=== PATIENT | female | born 1950 | race African-American/Black ===

== ENCOUNTER 2021-10-22 11:00 | Outpatient (RCR) | payer MEDICARE, SELFPAY ==
--- NOTE | 2021-07-27 14:05 | PTOPEVAL ---
Thank you for referring Bryanna Hernandez to [facility].? The patient is scheduled to be seen for therapy? 2 x/week for 8 weeks. Please review, sign, date and return this plan of care ALEJANDRA. I agree with and certify that the following plan of care is medically necessary. Referring Physician Date Referring Provider: Dr. Francisco Cheng Diagnosis low back pain and hip pain Additional Evaluation Detail She received therapy at [facility] a few months ago. Subjective Information She reports she has trouble Query Text:As Reported By Patient/ getting out of bed. She Family requires assistance with all bed mobility and transfers. She spends 12 hrs a day in her recliner lift chair. She goes from her bed to her recliner for the day. She does not exercise or walk during the day. She has a BSC next to her recliner. She has requires assistance with transfers for the past year. Prior Level of Function Activity Level (Last 3 Months) Activity of Daily Living Ability Needs Some Help Indoor/Home Mobility Needs Some Help Community Mobility Needs Some Help Stairs Ability Needs Some Help Home Setting Environmental Barriers Railing, None,Stairs, 2-4 Living Situation With Spouse Comments Additional Prior Level of Function assist with ADL's and Comments functional mobility. Hired assistance for housekeeping. Pain Assessment Right Leg(s) Reported Pain Level 5 Pain Description Aching Pain Frequency Chronic Lowest Pain Intensity 3 Greatest Pain Intensity 5 Lower Extremity Muscle Strength Testing Hip Strength Bilateral Hip Flexion Strength 3 Fair Hip Abduction Strength 2+ Poor + Hip Adduction Strength 2+ Poor + Knee Strength Bilateral Knee Flexion Strength 3+ Fair + Knee Extension Strength 4- Good - Knee Strength Comments hamstring tested seated Ankle Strength Bilateral Ankle Dorsiflexion Strength 3 Fair Ankle Plantarflexion Strength 3 Fair Ankle Eversion Strength 3 Fair Ankle Inversion Strength 3 Fair Muscle Length Testing Muscle Length Testing Piriformis w/Hip Neutral (R) Severe Tightness,(L) Severe Tightness Left Hamstring Length -60:(90 - 90 Position) Right Hamstring Length -60:(90 - 90 Position)
--- NOTE | 2021-08-25 11:46 | PTOPEVAL ---
Physical Therapy Progress Note Thank you for referring Bryanna Hernandez to [facility].? Pt referred to therapy due to right hip pain and sciatica. However she does not indicate her right leg as her primary problem. She has attended 9 therapy visits from 07/27/21 to 08/25/21 with land and aquatic therapy. As a result of skilled therapy services she demonstrates improved functional mobility with ability to perform transfers, ambulation, and bed mobility. She is performing her HEP and has increased her activities at home with increased walking and performing daily task. She is progressing slowly with LE strength, but demonstrates improved functional strength. 5 reps sit<>stand: 2:09 with assist to stabilize chair. Not tested Rushing Balance: , improved to 2 min walk test: 143 with rollator, declined slight to 120 ft with rollator TU sec with rollator Assessment: She presents to therapy with impairments consistent with her Parkinson's DX with therapy impairments of force production impairment with balance impairment, muscle weakness. She is progressing towards her therapy goals. She requires additional skilled therapy services to address her noted limitations, progress her HEP and functional mobility at home, and decrease her fall risk with improved balance,strength and endurance. Without additional skilled therapy services her multiple areas of impairments will not improve and her function will remain limited. The patient is scheduled to be seen for therapy?2 x/week for 5 weeks. Please review, sign, date and return this plan of care ALEJANDRA. I agree with and certify that the following plan of care is medically necessary. Referring Physician Date Referring Provider: MACIE Milian Diagnosis low back pain and hip pain Additional Evaluation Detail She received therapy at [facility] a few months ago. Subjective Information She reports improved ability Query Text:As Reported By Patient/ to walk, transfer and perform Family bed mobility at home. She is walking 2x/day in the house, performing HEP daily, and attempting household task. She does feel therapy has improved her limitations. Pain Assessment Self Report Pain Assessment Right Leg(s) Reported Pain Level 0 Pain Score Pain Score 0: Self Report Lower Extremity Muscle Strength Testing Hip Strength Bilateral Hip Flexion Strength 3 Fair Hip Extension Strength 2 Poor Hip Abduction Strength 2+ Poor + Hip Adduction Strength 2+ Poor + Hip Strength Comments slight lift of buttocks with bridge Knee Strength Bilateral Knee Flexion Strength 3+ Fair + Knee Extension Strength 4- Good - Knee Strength Comments hamstring tested seated Transfer Assessment Chair Transfer Assessment Chair Transfer Assistive Devices Gait Belt Ambulation Assistive Devices Walker, Rollator Chair Transfer Destination Ambulatory Sit to Stand Chair Transfer Ability Independent Stand to Sit Chair Transfer Ability
--- NOTE | 2021-09-28 10:37 | PCPTNOTE ---
Patient called & cancelled scheduled appointment this date due to not having transportation.
--- NOTE | 2021-10-05 11:52 | PTOPEVAL ---
PHYSICAL THERAPY RE-EVALUATION AND UPDATED PLAN OF CARE 10-05-21 Refer to the clinical summary below, for her status today, compared to the last reevaluation. Bryanna is scheduled to continue therapy? 2 x/week for 4 weeks, with one land and one aquatic treatment session/wk. Please review, sign, date and return this updated plan of care ALEJANDRA. I agree with and certify that the following plan of care is medically necessary. Referring Physician Date Attending Provider: MACIE Lujan Subjective Information Bryanna reports: is getting up Query Text:As Reported By Patient/ from the chair better and Family walking more; want to continue therapy; have been doing the exercises at home; is standing up about 10 minutes with doing dishes and kitchen things; went to [facility] the first time last week, up 2 step and did OK with it; is up/walking in home about every 2 hours; Pain Assessment Pain Scale Pain Scale Used Numeric (1 - 10) Self Report Pain Assessment Right Leg(s) Reported Pain Level 3 Pain Frequency Chronic,Continuous Other Pain Description throb proximal tibia Lowest Pain Intensity 3 Greatest Pain Intensity 4 Interventions Used Interventions Used By Clinicians Education,Exercise Gross Lower Extremity Range of Motion in sitting: active knee Comments flexion R 90'/ L 95'; Gross Lower Extremity Strength functional strength testing LE 's: -sitting: R and L: ankle DF to 0', knee extension to 0' and hip flexion x 20 reps each - standing: with B UE support: hip flexion ~ 40-50' x 20 reps verbal review of HEP: stated doing 10 reps, 2x- instruct to do 20 straight and increase as able Rushing Balance Assessment Sitting to Standing Independent w/Hands Unsupported Stance Ability Safely- 2 minutes Sitting Unsupported, Feet on Floor Safely- 2 minutes Standing to Sitting Assist, Control w/Hands Transfer Ability Safely, Hand Use Unsupported Stance- Eyes Closed Safely, 10 seconds Unsupported Stance- Feet Together Assist to attain, 15 secs Reaching Forward while Standing Safely, 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
--- NOTE | 2021-10-26 08:40 | PCPTNOTE ---
This treatment is being continued on visit number [id number] Please see documentation on both accounts to view progress. Completed interventions, outcomes, and problems have been marked as Inactive to facilitate the copying of the Care plan routine for recurring accounts.
== END 2021-10-25 23:59 | disposition home or self-care (01) ==
LOC: ANHPT 11:00
PROVIDERS: PCP Specialist
DX: M54.31 Sciatica, right side (principal); M25.551 Pain in right hip
CPT/HCPCS: 97110; 97112; 97113; 97116; 97163; 97530

== ENCOUNTER 2021-11-20 09:00 | Outpatient (RCR) | payer MEDICARE, SELFPAY ==
--- NOTE | 2021-10-26 08:42 | PCPTNOTE ---
This treatment is being continued from visit number [id number] . Please see documentation on both accounts to view progress. Completed interventions, outcomes, and problems have been marked as Inactive to facilitate the copying of the Care plan routine for recurring accounts.
--- NOTE | 2021-11-02 11:58 | PTOPEVAL ---
PHYSICAL THERAPY REEVALUATION AND UPDATED PLAN OF CARE 11-02-21 Refer to the clinical summary below, for her status today, compared to the last reevaluation. The goals were partially achieved. Continue PT treatment 2x/week for 3 weeks. Thank you for referring Bryanna Hernandez to [facility].? Please review, sign, date and return this updated plan of care ALEJANDRA. I agree with and certify that the following plan of care is medically necessary. Referring Physician Date Attending Provider: John Tirado MD Subjective Information Bryanna reports: mobility is Query Text:As Reported By Patient/ better since coming for Family therapy; still need to work on picking up my knees; have not had any falls, is getting up and walking about every hour at home; doing home exercises every other day; but do sitting exercises for legs all the time; still not comfortable on stairs--only done 2 steps at [facility] and home; Pain Assessment Timing of Pain Assessment Timing of Pain Assessment Assessment Self Report Self Report Pain Level 0 Pain Score Pain Score 0: Self Report Additional Pain Score Comments wearing L ankle brace and it helps--compression ankle brace Lower Extremity Range of Motion General Lower Extremity Range of Motion Gross Lower Extremity Range of Motion sitting knee flexion R 85'/L Comments 100' Gross Lower Extremity Strength functional strength testing R and L LE: - sit to stand transfer with laboring multiple attempts, use of B UE's and leans thighs onto mat - with B UE support: - hip flexion R to 70'/ L to 70' x 15 reps each - hip abduction R /L x 20 reps each - ankle DF R to (-5') / L to 0 x 15 reps; Rushing Balance Assessment Sitting to Standing Several Tries w/Hands Unsupported Stance Ability Safely- 2 minutes Sitting Unsupported, Feet on Floor Safely- 2 minutes Standing to Sitting Safely, Minimal Hand Use Transfer Ability Safely, Minimal Hand Use Unsupported Stance- Eyes Closed Safely, 10 seconds Unsupported Stance- Feet Together Independent, 1 minute Reaching Forward while Standing Safely, 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
--- NOTE | 2021-11-20 09:52 | PTOPEVAL ---
PHYSICAL THERAPY DISCHARGE REPORT 11-20-21 Refer to the clinical summary below, for her status today, compared to the last reeval. The goals were partially met. Discharge PT services. She is to continue with her HEP and increase walking tolerance. Thank you for referring Bryanna Hernandez to [facility].? Please review, sign, date and return this Discharge report ALEJANDRA. I agree with and certify that the following plan of care is medically necessary. Referring Physician Date Attending Provider: John Tirado MD Subjective Information Bryanna reports: gout flared Query Text:As Reported By Patient/ up and dr gave her meds, so is Family better; doing better getting around the house and was able to get into her 's truck; no falls; is doing her exercises at home; been going out to eat, shopping and buddhism; doing OK on stairs at home Pain Assessment Self Report Self Report Pain Level 0 Gross Lower Extremity Range of Motion sitting knee flexion R 95'/L Comments 105'; Gross Lower Extremity Strength functional strength testing R and L LE: - sit to stand transfer with laboring on first attempt, use of B UE's and leans thighs onto mat; decreased control with stand to sitting - with B UE support: - hip flexion R to 70'/ L to 70' x 20 reps each - hip abduction R /L x 20 reps each - ankle DF R to (-5') / L to 0' x 15 reps; Sit to Stand Chair Transfer Ability Independent Stand to Sit Chair Transfer Ability Independent Cues Needed for Chair Transfer None Chair Transfer Comments sit to stand indep, with use of B UE's and labored; decrease knee flexion and leans thighs on chair Rushing Balance Assessment Sitting to Standing Independent w/Hands Unsupported Stance Ability Safely- 2 minutes Sitting Unsupported, Feet on Floor Safely- 2 minutes Standing to Sitting Safely, Minimal Hand Use Transfer Ability Safely, Minimal Hand Use Unsupported Stance- Eyes Closed Safely, 10 seconds Unsupported Stance- Feet Together Independent, 1 minute Reaching Forward while Standing Safely, 5 inches it technical support specialist Object From Floor Supervision Look Behind Shoulder - Standing Shifts Weight Unilateral Turning 360 Degrees Supervision
== END 2022-01-11 10:47 | disposition home or self-care (01) ==
LOC: ANHPT 09:00
PROVIDERS: PCP Specialist
DX: M54.31 Sciatica, right side (principal); M25.551 Pain in right hip
CPT/HCPCS: 97110; 97112; 97113; 97140; 97530

== ENCOUNTER 2022-03-09 08:00 | Outpatient (RCR) | payer MEDICARE, SELFPAY ==
--- NOTE | 2021-12-18 10:13 | PTOPEVAL1 ---
Evaluation Information Assessment Status Evaluation Diagnosis L knee and ankle arthritis Onset 11-16-21 Subjective Information more pain in L knee and ankle, received injection in L knee and ankle- helped a little, but still have pain and throbbing;have not had any falls; using wheeled walker all the time; Reported Pain Level Pain Score 3: Self Report Additional Pain Score Comments use rollator for walking;pain range 0-5/10 Assessment PT Clinical Summary Bryanna has the diagnosis of L knee and ankle arthritis. She recently completed PT for gait/ balance and LE strengthening and is continuing to do the previous leg exercise program. She does have good supportive shoes. She presents with decreased ROM and strength of L knee flexion, extension; ankle DF, inversion and eversion ranges of motion. She also has decreased L hip IR ROM, with poor positioning over L LE-- holds in hip ER, knee flexion and ankle forefoot abduction. Skilled PT services are indicated to increase L LE strength and ROM, with education for home exercises and modalities to decrease pain. Plan of Care Interventions Electrical Stimulation,Gait Training,Manual Therapy,Neuro Re-education,Patient/Caregiver Education,Therapeutic Activities,Therapeutic Exercise,Other Other Interventions fluiodtherapy PT Services Indicated Yes Treatment Frequency and 2x/wk for 4 weeks Duration These treatments will address the objective and functional deficits as defined above. The patient will be advanced safely and appropriately in order for the patient to progress towards his/her prior level of function. Additional exercises will be introduced and as well as a comprehensive home exercise program upon discharge, if needed, ?to ensure carryover of functional gains achieved in the clinic. This treatment plan has been reviewed and agreement upon by the patient.
--- NOTE | 2022-01-15 10:23 | PTOPEVAL1 ---
Assessment and note entered by Genoveva Lira, PT Evaluation Information Assessment Status Re-Evaluation Diagnosis L knee and ankle arthritis Onset 11-16-21 Subjective Information Bryanna reports: is doing better, able to take a few steps without the walker; have been doing the exercises at home; Reported Pain Level Pain Score Self Report pain L knee and ankle Additional Pain Score Comments pain range of 0-6/10; increase pain with standing and walking about 10 minutes; Assessment PT Clinical Summary Bryanna has had 9 PT sessions for the diagnosis of L knee and ankle arthritis. Compared to the evaluation, her pain at the low rating is the same, 0/10 and high rating increased from 5 to 6/10; reported walking tolerance increased from 5-10 min to 10 minutes; 2 minute walking test difference is the same; some increased strength of L knee extension, ankle DF and toe flexion/extension; L hip IR, knee and ankle ranges are the same; She is motivated and is doing her home exercises, but Parkinson's is also affecting her L LE. Continue PT, to include LSVT/Parkinson's program in her treatment--for education of big and loud with movements to improve flexibility, gait and HEP specific for Parkinson's diagnosis. Plan of Care Interventions Gait Training,Neuro Re-education,Therapeutic Activities,Therapeutic Exercise PT Services Indicated Yes Treatment Frequency and 1-2x/wk for 5 weeks, due to availability of Duration schedule of pt and therapist These treatments will address the objective and functional deficits as defined above. The patient will be advanced safely and appropriately in order for the patient to progress towards his/her prior level of function. Additional exercises will be introduced and as well as a comprehensive home exercise program upon discharge, if needed, ?to ensure carryover of functional gains achieved in the clinic. This treatment plan has been reviewed and agreement upon by the patient.
--- NOTE | 2022-02-10 14:18 | PCPTNOTE ---
pt called and canceled today's appt due to in ER;
--- NOTE | 2022-02-19 13:30 | PTOPPROG ---
Assessment and note entered by Genoveva Lira, PT Evaluation Information Assessment Status progress Diagnosis L knee and ankle arthritis Onset 11-16-21 Subjective Information Bryanna reports: transfer better, sit/standing up; balance is better with standing and reaching; have been doing the exercises at home; hand writing is better- was really frustrated about it because it was small, but now better; standing/ walking at home about 15 minutes; want to keep doing more therapy; want to walk better, not use the walker but use a cane for walking; Assessment PT Clinical Summary Bryanna has received 12 PT sessions. She canceled a few sessions, due to her was in the hospital. Compared to the last reeval: L hip, knee and ankle ranges are the same--continues to have tightness of hip IR, knee extension and ankle DF motions; increased 2 minute walking test distance from 225' to 260'; gait pattern has improved-- larger step length--now passes other foot; she has flat foot pattern, but does not drag her L toe; With the LSVT exercises, she has increased mobility of her trunk rotation and hips, with larger motions. Continue skilled PT services. Plan of Care Interventions Gait Training,Manual Therapy,Neuro Re-education, Patient/Caregiver Education,Therapeutic Activities, Therapeutic Exercise PT Services Indicated Yes Treatment Frequency and 1-2x/wk for 5 weeks, depending upon pt and her Duration husbands' schedule These treatments will address the objective and functional deficits as defined above. The patient will be advanced safely and appropriately in order for the patient to progress towards his/her prior level of function. Additional exercises will be introduced and as well as a comprehensive home exercise program upon discharge, if needed, ?to ensure carryover of functional gains achieved in the clinic. This treatment plan has been reviewed and agreement upon by the patient.
--- NOTE | 2022-03-09 11:50 | PCPTNOTE ---
This treatment is being continued on visit number [id number]. Please see documentation on both accounts to view progress. Completed interventions, outcomes, and problems have been marked as Inactive to facilitate the copying of the Care plan routine for recurring accounts.
== END 2022-03-09 11:05 | disposition home or self-care (01) ==
LOC: ANHPT 08:00
PROVIDERS: PCP Specialist
DX: M17.12 Unilateral primary osteoarthritis, left knee (principal); M19.072 Primary osteoarthritis, left ankle and foot
CPT/HCPCS: 97110; 97112; 97116; 97162; 97530

== ENCOUNTER 2022-03-25 11:00 | Outpatient (RCR) | payer MEDICARE, SELFPAY ==
--- NOTE | 2022-03-09 11:53 | PCPTNOTE ---
This treatment is being continued from visit number [id number]. Please see documentation on both accounts to view progress. Completed interventions, outcomes, and problems have been marked as Inactive to facilitate the copying of the Care plan routine for recurring accounts.
--- NOTE | 2022-03-25 12:01 | PTOPDC ---
Assessment and note entered by Genoveva Lira, PT Evaluation Information Assessment Status Discharge Diagnosis L knee and ankle arthritis Onset 11-16-21 Subjective Information Bryanna reports: has been doing her exercises at home--new ones lying down and other standing exercises; more L ankle pain today not sure why-- walked alot yesterday; agrees to d/c from PT but likes coming here for exercises; Reported Pain Level Pain Score Self Report Pain Score Self Report Additional Pain Score Comments pain in L lateral ankle and foot 10/25 today Additional Pain Score Comments L lateral ankle and bottom of last 2 toes Assessment PT Clinical Summary Bryanna has received 18 PT sessions. Compared to the last reevaluation: HEP was progressed; LE ROM and reported activity tolerance is about the same; doing well with performing the LSVT exercises; 2 minute walking test distance decreased 50'; 5 reps sit/stand time increased 4 seconds; TUG decreased by 9 sec; She has increased awareness of her walking pattern and self corrects with bigger step length and more upright trunk. The goals were partially met. Discharge PT services. She is to continue with her home exercises. Plan of Care PT Services Indicated No PT Services Indicated no
--- NOTE | 2022-03-25 12:04 | PCPTNOTE ---
on this date, treatment note was started, then towards the end of the session, realized that today's appt should have been a reeval appt; I saved the treatment note and did not enter a charge; then redid the note as a discharge report, using recall to do the note.
== END 2022-03-25 12:31 | disposition home or self-care (01) ==
LOC: ANHPT 11:00
PROVIDERS: PCP Specialist
DX: M17.12 Unilateral primary osteoarthritis, left knee (principal); M19.072 Primary osteoarthritis, left ankle and foot
CPT/HCPCS: 97110; 97112; 97116; 97530

== ENCOUNTER 2022-08-20 09:10 | Observation (INO) | payer MEDICARE, SELFPAY ==
[2022-08-20] VITALS (33 sets, daily range): BP systolic 115–190; BP diastolic 55–83; PULSE 43–69; RESP 10–20; TEMP 36.1–36.5; O2SAT 97–100; BMI 34.1; BMI 34.2
--- NOTE | ~2022-08-20 | XR_ITS ---
EXAMINATION: XR chest 1V portable DATE: 08/20/2022 09:49 INDICATION: Near syncope. TECHNIQUE: A single frontal view of the chest was obtained. COMPARISON: None. FINDINGS: The chest demonstrates clear lungs without pneumonia, pleural effusion, or pneumothorax. Th e heart size is normal. Surgical clips in the right upper quadrant are likely from cholecystectomy. IMPRESSION: 1. No acute cardiopulmonary disease. Reviewed, dictated and finalized at location A.
--- NOTE | ~2022-08-20 | US_ITS ---
EXAMINATION: US venous doppler [facility] DATE: 08/20/2022 21:48 INDICATION: edema . TECHNIQUE: Grayscale images without and with compression and Doppler images of the bilateral lower ex tremity veins were obtained. COMPARISON: None FINDINGS: The right common femoral vein, profunda (deep) femoral vein, femoral vein, popliteal vein, peroneal v ein, posterior tibial veins, gastrocnemius vein, and greater saphenous vein are patent. The left common femoral vein, profunda (deep) femoral vein, femoral vein, popliteal vein, peroneal v ein, posterior tibial veins, gastrocnemius vein, and greater saphenous vein are patent. IMPRESSION: 1. Patent bilateral lower extremity veins. No evidence of deep venous thrombosis. Reviewed, dictated and finalized at location K. IMPRESSION: 1. Patent bilateral lower extremity veins. No evidence of deep venous thrombos is.
--- NOTE | ~2022-08-20 | US_ITS ---
EXAMINATION: US carotid duplex BI DATE: 08/20/2022 16:04 INDICATION: Syncope TECHNIQUE: Grayscale, color Doppler, and pulsed Doppler images of the cervical carotid arteries were obtained. The degree of vessel stenosis is placed in one of the following categories: normal, <50%, 5 0-69%, >=70% but less than near-occlusion, near-occlusion, or total occlusion. Note that percent sten osis relative to normal distal artery lumen diameter is indirectly measured from velocity measurement s as described by Evangelista, et al. Radiology 2003; 229:340-346. COMPARISON: None. FINDINGS: RIGHT: The right common carotid artery (CCA) peak systolic velocity (PSV) is 91 cm/s. The right internal car otid artery (ICA) PSV is 71 cm/s. The right ICA end-diastolic velocity (EDV) is 19 cm/s. The right IC A/CCA PSV ratio is 0.8. Grayscale and color Doppler images yield an estimate of <50% diameter reducti on from plaque in the ICA. The external carotid artery (ECA) PSV is 67 cm/s. There is antegrade flow in the right vertebral artery. LEFT: The left CCA PSV is 88 cm/s. The left ICA PSV is 79 cm/s. The left ICA EDV is 19 cm/s. The left ICA/C CA PSV ratio is 0.9. Grayscale and color Doppler images yield an estimate of <50% diameter reduction from plaque in the ICA. The ECA PSV is 100 cm/s. There is antegrade flow in the left vertebral artery . IMPRESSION: 1. <50% stenosis in the right internal carotid artery. 2. <50% stenosis in the left internal carotid artery. Reviewed, dictated and finalized at location B.
--- NOTE | 2022-08-20 09:15 | ECG_ITS ---
Measurements Intervals [place] Rate: 45 P: 55 AR: 138 QRS: -34 QRSD: 94 T: 7 QT: 442 QTc: 383 Interpretive Statements SINUS BRADYCARDIA LEFT AXIS DEVIATION BORDERLINE T WAVE ABNORMALITY- ANTEROLAT/INF LEADS ABNORMAL ECG NO PREVIOUS ECG AVAILABLE FOR COMPARISON Electronically Signed On 08-20-2022 9:35:44 CDT by Reji Wahl D.O.
[2022-08-20 09:37] LABS: Basophils Absolute Auto 0.1 K/mm3 (0.0-0.1); Basophils Percent Auto 0.6 % (0.2-1.2); Eosinophils Absolute Auto 0.1 K/mm3 (0-0.3); Hemoglobin 10.6 g/dL (12.0-15.0); Immature Granulocyte Absolute 0.05 K/mm3 (0.00-0.031); Immature Granulocyte Percent A 0.5 % (0-0.5); Lymphocytes Absolute Auto 1.95 K/mm3 (0.9-3.2); Lymphocytes Percent Auto 17.9 % (18.3-44.2); Mean Corpuscular HGB Conc 33.1 g/dl (32-36); Mean Corpuscular Hemoglobin 30.7 pg (26-34); Mean Corpuscular Volume 92.8 fl (80-100); Mean Platelet Volume 9.9 fl (7.4-10.4); Monocytes Absolute Auto 0.6 K/mm3 (0.1-0.6); Monocytes Percent Auto 5.8 % (2.6-8.5); Neutrophils Absolute Auto 8.1 K/mm3 (1.3-6.7); Neutrophils Percent Auto 74.2 % (45.5-73.1); Platelet Count Result 197 k/mm3 (150-375); Red Blood Count 3.45 M/mm3 (4.2-5.4); Red Cell Distribution Width 13.3 % (11.5-14.5); White Blood Count 10.9 K/mm3 (4.5-10.0)
[2022-08-20 09:47] LABS: Alanine Aminotransferase 13 U/L (6-35); Albumin Level 3.8 g/dL (3.5-5.1); Alkaline Phosphatase 81 U/L (38-126); Anion Gap 5 mmol/L (8-16); Aspartate Amino Transferase 18 U/L (14-36); Bilirubin,Total 0.9 mg/dL (0.2-1.3); Blood Urea Nitrogen 13 mg/dL (7-17); Calcium 8.7 mg/dL (8.4-10.2); Carbon Dioxide 28 mmol/L (22-30); Chloride 103 mmol/L (98-107); Estimated CRCL calculation 54 ml/min; Estimated Glomerular Filt Rate > 60; Glucose 165 mg/dL (65-110); Potassium 3.1 mmol/L (3.4-5.0); Sodium 136 mmol/L (137-145)
[2022-08-20 09:55] LABS: Partial Thromboplastin Time 21.9 SECONDS (22.3-36.8); Prothrombin Time 13.8 Seconds (11.1-14.7)
[2022-08-20 09:59] LABS: NT Pro B Type Natriuretic Pept 347 pg/mL (19.9-100); Troponin I < 0.012 ng/mL (0.000-0.034)
[2022-08-20 11:16] LABS: Appearance Urine Clear (Clear); Bilirubin Urine Negative (Negative); Blood Urine Negative (Negative); Color Urine Yellow (Yellow); Glucose Urine UA Negative (Negative); Ketones Urine Negative (Negative); Leukocyte Esterase Ur Negative LEU/UL (Negative); Nitrate Urine Negative (Negative); Protein Urine Negative (Negative); Specific Grav Ur 1.008 (1.001-1.035); Urobilinogen Urine 0.2 mg/dL (<2.0); pH Urine 7.5 (5.0-9.0)
[2022-08-20 11:19] LABS: Add Urine Microscopic? NO
--- NOTE | 2022-08-20 12:30 | PC.NURSE ---
pt states is feeling much better. 3 hour troponin drawn and sent.
--- NOTE | 2022-08-20 12:40 | ED.SYNCOPE ---
HPI - Syncope General Chief Complaint: Syncope Stated Complaint: near syncope, bradycardic Time Seen by Provider: 08/20/22 09:15 History of Present Illness HPI narrative: Patient is a 71-year-old female who presents ER with syncope from home. Patient was on the toilet and had had a bowel movement. No diarrhea or blood in the stool. She felt off and called for her . She was diaphoretic. She passed out while moving into the other room. Patient has been persistently bradycardic for EMS. Patient denies any chest pain or pressure at this time. She is still feeling slightly lightheaded. She also feels slightly anxious. She takes carvedilol 12.5 mg, she believes it is for hypertension. Denies history of arrhythmia. Related Data Home Medications Medication Instructions Recorded Confirmed allopurinol 100 mg tablet 100 mg PO BID 08/20/22 carbidopa 25 mg-levodopa 100 mg 1 tablet PO TID 08/20/22 tablet carbidopa ER 50 mg-levodopa 200 mg 1 tablet PO HS 08/20/22 tablet,extended release carvedilol 12.5 mg tablet 12.5 mg PO BID 08/20/22 chlorthalidone 25 mg tablet 25 mg PO DAILY 08/20/22 irbesartan 300 mg tablet 300 mg PO DAILY 08/20/22 metformin 500 mg tablet,extended 500 mg PO DAILY 08/20/22 release 24 hr multivit with minerals-iron 18 tablet PO 08/20/22 mg-folic ac 400 mcg-vit K 25 mcg tablet (Adults Multivitamin) Allergies Allergy/AdvReac Type Severity Reaction Status Date / Time ROSA Inhibitors Allergy Unknown Verified 08/20/22 09:20 amlodipine Allergy Unknown Verified 08/20/22 09:19 meloxicam Allergy Unknown Verified 08/20/22 09:19 Review of Systems Review of Systems: All systems reviewed & are unremarkable except as noted in HPI and below Constitutional: Constitutional: Denies chills, Denies fatigue and Denies fever(s) Comments: Diaphoresis ENT: Denies nasal congestion and Denies sore throat Cardiovascular: Cardiovascular: Denies chest pain, Denies radiating jaw, neck or arm pain and Reports slow heart rate Respiratory: Respiratory: Denies cough and Denies dyspnea Gastrointestinal: Gastrointestinal: Denies abdominal pain, Denies diarrhea, Denies nausea and Denies vomiting Genitourinary: Genitourinary: Denies nocturia, Denies dysuria and Denies flank pain PMFSH Past Medical History Medical History (Updated 08/20/22 @ 14:25 by Waqar Min MD) Diabetes Hypertension Parkinsons disease Surgical History Surgical History (Updated 08/20/22 @ 14:23 by Waqar Min MD) History of cholecystectomy Exam Narrative: GENERAL: Well-appearing, well-nourished, and in no acute distress. HEAD: Normocephalic, atraumatic. EYES: PERRL and EOMI. ENT: Mucous membranes moist. CHEST: Clear to auscultation. No respiratory distress. HEART: Bradycardic and regular. Normal peripheral pulses. ABDOMEN: Soft, nontender, nondistended. EXTREMITIES: Normal range of motion. No edema. SKIN: Warm, dry, no rash. NEURO: Alert and oriented x3. PSYCH: Normal mood and affect. Course Course Emergency Course: There is concern bradycardia provokes patient's syncopal episode. Patient has been persistently in the 40s. Appears to be sinus bradycardia. Cardiology consulted and admit to hospitalist service for observation. Patient and agreeable to plan. Vital Signs Vital signs: Vital Signs Pulse Rate 47 L 08/20/22 09:11 Respiratory Rate 15 08/20/22 09:11 Blood Pressure 126/62 08/20/22 09:11 Pulse Oximetry 98 08/20/22 09:11 Oxygen Delivery Room Air 08/20/22 09:11 Pulse Rate 55 L 08/20/22 13:58 Respiratory Rate 17 08/20/22 13:58 Blood Pressure 156/69 H 08/20/22 13:58 Pulse Oximetry 99 08/20/22 13:58 Oxygen Delivery Room Air 08/20/22 09:11 MDM - Syncope Lab Data 08/20/22 09:30 08/20/22 09:30 Labs: Lab Results 08/20/22 08/20/22 08/20/22 Range/Units 09:30 11:08 12:29 WBC 10.9 H (4.5-1
[2022-08-20 13:15] LABS: Troponin I < 0.012 ng/mL (0.000-0.034)
--- NOTE | 2022-08-20 14:49 | PM.IMHP ---
H&P: HPI History of Present Illness Date/Time: 08/20/22 14:50 Chief Complaint: Syncope. Narrative: This is a pleasant 71-year-old female with Parkinson's, hypertension, and type 2 diabetes mellitus who presented to the emergency department via EMS from home for evaluation after a syncopal episode. The patient provides the following history. She felt just fine when she got up this morning and she went to the restroom as usual. She had a normal, unremarkable bowel movement and she stood up to wash her hands. Within seconds she began to feel lightheaded, dizzy, anxious, and nauseated. She did have 1 episode of emesis and she called out for her at that time who came to her side immediately with her wheeled walker. She sat down on the walker and he pushed her into the other room where she had a brief loss of consciousness. EMS was summoned on their arrival she was bradycardic and she has been persistently bradycardic since that time with heart rates in the mid 40s. She is on carvedilol 12.5 mg b.i.d. and she did take her morning dose. She does not know her baseline heart rate but she does not ever recall being told that her heart rate was ever low. She has never had similar symptoms. She denies chest pain discomfort, sensations of racing heart, palpitations, pleuritic pain, and shortness of breath. She has current of her symptoms and feels just fine. In the ED her heart rate was persistently in the 40s to low 50s. Blood pressures were stable on arrival and have remained so; her orthostatic vital signs have been normal. Labs were significant for a WBC count of 10.9, hemoglobin 10.6, sodium 136, potassium 3.1, glucose 165, troponin less than 0.012, proBNP 347. Chest x-ray showed no acute cardiopulmonary disease. EKG showed sinus bradycardia with left axis deviation borderline T-wave abnormalities in the anterolateral and inferior leads. She is being admitted in this setting for close monitoring given persistent bradycardia. Review of Systems Review of Systems: Twelve systems were reviewed. She does have some balance issues from her Parkinson. Denies dysphagia and concerns for aspiration though I did witness her cough briefly after drinking liquid. No recent falls. No focal weakness or paresthesias. She denies chest pain and shortness of breath. She has occasional lower extremity edema, usually worse as the day progresses due to dependent edema but it goes down by morning time. No history of venous thromboembolism. She believes that her diabetes is well controlled. Except as documented, all other systems were reviewed and are negative. [facility] Past Medical History Medical History (Updated 08/20/22 @ 21:03 by Lynn Walter PA-C) Arthritis Gout Hypertension Parkinsons disease Type 2 diabetes mellitus Surgical History Surgical History (Updated 08/20/22 @ 21:01 by Lynn Walter PA-C) History of arthroplasty of right knee (2018) History of bilateral cataract extraction (2019) History of section History of cholecystectomy History of colonoscopy with polypectomy History of open reduction and internal fixation (ORIF) procedure Repair of right ankle fracture. Family History Family History Mother Diabetes mellitus Hypertension Cerebrovascular accident Father Liver cancer Hypertension Other Breast cancer Social History Social History Social History: Surrogate medical decision maker: Laz Hernandez, spouse. Code status: Full code. Smoking status: Never smoker Second hand tobacco smoke exposure: No Alcohol intake: never Substance use: never Lack of Transportation: No Lack of Food: Never True Current Housing: I Have Housing Concerned About Future Housing: No Difficulty Paying Gas/Electric Bills: No Difficulty Paying for Meds: No Currently Unemployed:
[2022-08-20 16:36] LABS: Glucose Point of Care 113 mg/dl (65-105)
[2022-08-20] MEDS: CARBIDOPA/LEVODOPA 10/100 MG TABLET 2 TABLET PO (16:46)
[2022-08-20] MEDS: POTASSIUM CHLORIDE 20 MEQ TABLET 40 MEQ PO (16:47)
[2022-08-20 17:45] LABS: Troponin I < 0.012 ng/mL (0.000-0.034)
[2022-08-20 20:29] LABS: Glucose Point of Care 119 mg/dl (65-105)
[2022-08-20] MEDS: CARBIDOPA/LEVODOPA 25/100 MG CR TABLET 2 TABLET PO (21:57)
[2022-08-20] MEDS: allopurinoL 100 MG TABLET PO (21:57)
[2022-08-21] VITALS (16 sets, daily range): BP systolic 112–178; BP diastolic 48–73; PULSE 48–65; RESP 14–18; TEMP 36.2–36.5; O2SAT 96–100
[2022-08-21 04:49] LABS: Anion Gap 6 mmol/L (8-16); Blood Urea Nitrogen 11 mg/dL (7-17); Carbon Dioxide 28 mmol/L (22-30); Chloride 104 mmol/L (98-107); Estimated CRCL calculation 57 ml/min; Estimated Glomerular Filt Rate > 60; Glucose 105 mg/dL (65-110); Magnesium 1.5 mg/dL (1.6-2.3); Potassium 3.6 mmol/L (3.4-5.0); Sodium 138 mmol/L (137-145)
[2022-08-21 05:05] LABS: Hemoglobin A1C 6.4 % (<5.7)
[2022-08-21 05:25] LABS: Iron 68 ug/dL (37-170)
[2022-08-21 05:35] LABS: Percent Iron Saturation 26 % (20-50)
[2022-08-21 05:55] LABS: Folic Acid 12.3 ng/mL (2.76->20)
[2022-08-21 08:38] LABS: Glucose Point of Care 121 mg/dl (65-105)
[2022-08-21] MEDS: IRBESARTAN 150 MG TABLET 300 MG PO (08:50)
[2022-08-21] MEDS: CHOLECALCIFEROL 1,000 UNITS TABLET 1000 UNITS PO (08:50)
[2022-08-21] MEDS: allopurinoL 100 MG TABLET PO ×2 (08:50→17:39)
[2022-08-21] MEDS: CARBIDOPA/LEVODOPA 25/100 MG TABLET 3 TABLET PO ×3 (08:50→17:39)
[2022-08-21] MEDS: metFORMIN HCL XR 500 MG TAB.SR.24H PO (08:50)
[2022-08-21] MEDS: MULTIVITAMINS /C LUTEIN (CENTRUM SILVER) TABLET *BKC 1 TAB PO (08:51)
[2022-08-21] MEDS: CHLORTHALIDONE 25 MG TABLET PO (08:51)
[2022-08-21 12:11] LABS: Glucose Point of Care 136 mg/dl (65-105)
--- NOTE | 2022-08-21 14:16 | PM.CNCAR ---
Assessment and Plan Assessment and plan (1) Syncope: Code(s): R55 - Syncope and collapse Status: Acute Plan One episode of syncope and likely related to orthostatic hypotension vs vasovagal response Hx of parkinsonism HTN controlled Sinus bradycarida likely related to coreg Plan Event monitor on D/C Decrease coreg home dose to 6.25 mg po BID Cont Irbesartan 300 mg daily Educated about precaution for orthostatic hypotension F/U in clinic History of Present Illness History of Present Illness Consult date/time: 08/21/22 14:16 Reason For Visit: Syncope/Bradycardia Narrative: Patient presented with an episode of syncope. She was standing at sink and felt acute dizziness, lightheadedness and her family member helped her to move to chair when she transiently passed out for 2 min. No precipitating or relieving factors. It was associated with one time vomiting. She feels well today. There no recent change in medications or diet, and no proceeding diarrhea or significant vomiting. Review of Systems Review of Systems: 12 points review of system is negative except for mentioned in HPI [facility] Past Medical History Medical History (Updated 08/20/22 @ 21:03 by Lynn Walter PA-C) Arthritis Gout Hypertension Parkinsons disease Type 2 diabetes mellitus Surgical History Surgical History (Updated 08/20/22 @ 21:01 by Lynn Walter PA-C) History of arthroplasty of right knee (2018) History of bilateral cataract extraction (2019) History of section History of cholecystectomy History of colonoscopy with polypectomy History of open reduction and internal fixation (ORIF) procedure Repair of right ankle fracture. Family History Family History Mother Diabetes mellitus Hypertension Cerebrovascular accident Father Liver cancer Hypertension Other Breast cancer Social History Social History Social History: Surrogate medical decision maker: Lazlucas Hernandez, spouse. Code status: Full code. Smoking status: Never smoker Second hand tobacco smoke exposure: No Alcohol intake: never Substance use: never Lack of Transportation: No Lack of Food: Never True Current Housing: I Have Housing Concerned About Future Housing: No Difficulty Paying Gas/Electric Bills: No Difficulty Paying for Meds: No Currently Unemployed: No Education: Master's Degree or Higher Difficulty w/ Childcare or Family Care: No Spiritual care concerns: No (patient is Catholic) Meds Home Medications and Allergies Home Medications Medication Instructions Recorded Confirmed Type allopurinol 100 mg tablet 100 mg PO BID 08/20/22 08/20/22 History amoxicillin 500 mg tablet 2,000 mg PO ONCE PRN prior to 08/20/22 08/20/22 History dental appointments carbidopa 25 mg-levodopa 100 mg 3 tablet PO TID 08/20/22 08/20/22 History tablet carbidopa ER 50 mg-levodopa 200 mg 1 tablet PO HS 08/20/22 08/20/22 History tablet,extended release carvedilol 12.5 mg tablet 12.5 mg PO BID 08/20/22 08/20/22 History chlorthalidone 25 mg tablet 25 mg PO DAILY 08/20/22 08/20/22 History cholecalciferol (vitamin D3) 25 25 mcg PO DAILY 08/20/22 08/20/22 History mcg (1,000 unit) tablet (Vitamin D3) irbesartan 300 mg tablet 300 mg PO DAILY 08/20/22 08/20/22 History metformin 500 mg tablet,extended 500 mg PO DAILY 08/20/22 08/20/22 History release 24 hr multivit with minerals-iron 18 1 tablet PO DAILY 08/20/22 08/20/22 History mg-folic ac 400 mcg-vit K 25 mcg tablet (Adults Multivitamin) prednisone 10 mg tablet 10 mg PO DAILY PRN gout flare 08/20/22 08/20/22 History Allergies Allergy/AdvReac Type Severity Reaction Status Date / Time meloxicam Allergy Severe Swelling Verified 08/20/22 14:35 of Lip/Tongue/Throat ROSA Inhibitors A
--- NOTE | 2022-08-21 14:50 | PM.IMPN ---
Progress Note: A&P Assessment and Plan (1) Syncope: Code(s): R55 - Syncope and collapse Status: Acute Assessment and Plan: History seems consistent with vasovagal syncope Bradycardic however sinus bradycardia with no blocks/pauses Continue telemetry Coreg on hold Echo pending Carotid Doppler with insignificant stenosis Orthostatic vitals negative (2) Bradycardia: Code(s): R00.1 - Bradycardia, unspecified Status: Acute Assessment and Plan: Hold carvedilol for now to see how she responds. TSH normal. Continue to monitor on telemetry. (3) Type 2 diabetes mellitus: Code(s): E11.9 - Type 2 diabetes mellitus without complications Status: Acute Assessment and Plan: Initiate sliding scale insulin, Accu-Cheks, and hypoglycemic protocol. A1c 6.4 (4) Hypertension: Code(s): I10 - Essential (primary) hypertension Status: Chronic Assessment and Plan: Blood pressures are stable. Continue irbesartan and chlorthalidone; carvedilol on hold given bradycardia. (5) Parkinsons disease: Code(s): G20 - Parkinson's disease Status: Chronic Assessment and Plan: Continue carbidopa-levodopa. (6) Hypokalemia: Code(s): E87.6 - Hypokalemia Status: Acute Assessment and Plan: May be related to thiazide-like diuretic. Replace potassium and monitor. (7) Lower extremity edema: Code(s): R60.0 - Localized edema Status: Acute Assessment and Plan: May very well be dependent edema though venous Doppler ultrasounds negative Subjective Date/time seen: 08/21/22 14:50 Interval history: Feels better back to her normal self. Telemetry reviewed. Denies any dizziness or lightheadedness. No new medication. Review of Systems Review of Systems: All systems reviewed & are unremarkable except as noted in HPI and below Exam Narrative: General: Well-developed, nontoxic-appearing female in the semi-Tuttle position in bed. HEENT: Normocephalic, atraumatic. PERRL, EOMI. Sclera anicteric. Oral mucosa moist. Oropharynx clear. Neck: Supple. Trachea midline. No carotid bruits. Respiratory: Lungs are clear to auscultation bilaterally. Cardiovascular: Bradycardic, sinus rhythm with S1-S2. Systolic murmur at the upper sternal border. Gastrointestinal: Abdomen is soft, nontender, and nondistended with positive bowel sounds. Skin: Warm and dry. No rash or lesions on limited exam. Extremities: No cyanosis or clubbing. 2+ coby ankle edema bilaterally. Radial and pedal pulses intact. Neurological: Alert. Cranial nerves 2-12 are grossly intact. No gross focal deficits to casual conversation. Psychiatric: Pleasant and cooperative with normal mood and affect. Judgment and insight intact. Objective Data Vital Signs Vital Signs: Vital Signs - 24 hr 08/20/22 16:00 08/20/22 16:34 08/20/22 16:00 Temperature 97 F L Pulse Rate 50 L 56 L Respiratory Rate 20 Blood Pressure 187/79 H Pulse Oximetry 100 Oxygen Delivery Room Air 08/20/22 18:00 08/20/22 17:00 08/20/22 20:00 Temperature Pulse Rate 54 L Respiratory Rate Blood Pressure 133/63 123/71 Pulse Oximetry Oxygen Delivery 08/20/22 20:00 08/20/22 20:40 08/20/22 20:40 Temperature 97.1 F L Pulse Rate 53 L Respiratory Rate 18 Blood Pressure 149/63 H 160/65 H 148/62 H Pulse Oximetry 97 Oxygen Delivery 08/20/22 20:00 08/20/22 22:00 08/20/22 23:39 Temperature 97.7 F Pulse Rate 55 L 53 L 69 Respiratory Rate 18 Blood Pressure 115/74 Pulse Oximetry 99 Oxygen Delivery 08/21/22 00:00 08/21/22 02:00 08/21/22 04:00 Temperature 97.2 F L Pulse Rate 52 L 53 L 57 L Respiratory Rate 18 Blood Pressure 149/73 H Pulse Oximetry 100 Oxygen Delivery 08/21/22 04:00 08/21/22 06:00 08/21/22 08:00 Temperature 97.3 F L Pulse Rate 48 L 53 L 55 L Respiratory Rate 16 Blood Pre
--- NOTE | 2022-08-21 14:55 | ECHO_ITS ---
Patient Info Name: Bryanna Hernandez Age: 71 years : 1950 Gender: Female Ht: 62 in Wt: 186 lbs BSA: 1.96 m2 BP: 149 / 73 mmHg Technical Quality: Good Exam Date: 08/21/2022 7:45 AM Exam Location: [facility] Patient Status: Inpatient Admit Date: 08/20/2022 Staff Ordering Physician: Lynn Walter PA-C Can Maker: Saira Rivera RDCS Attending Provider: Onel Staton MD Referring Physician: Saba JEFFERSON; Exam Type: CA echo doppler color flow Study Info Indications R55 - Syncope and collapse Complete two-dimensional, color flow and Doppler transthoracic echocardiogram is performed. Summary 1. Complete two-dimensional, color flow and Doppler transthoracic echocardiogram is performed. 2. Left ventricular systolic function is normal, estimated at 65-70%. 3. There is mild mitral valve regurgitation. 4. There is moderate tricuspid valve regurgitation. 5. No pulmonary hypertension, estimated pulmonary arterial systolic pressure is 30 mmHg. Left Ventricle Left ventricular chamber dimension is normal. Left ventricular systolic function is normal, estimated at 65-70%. There is no increased left ventricular wall thickness. Left ventricular septal wall motion is normal. The left ventricular diastolic function is normal. Right Ventricle Right ventricular chamber dimension is normal. Right ventricular systolic function is normal. Left Atria Left atrial chamber dimension is normal. Right Atria Right atrial chamber dimension is normal. Aortic Valve The aortic valve is trileaflet. There is no aortic valve sclerosis. There is no aortic valve stenosis. There is no aortic valve regurgitation. Pulmonic Valve The pulmonic valve is not well visualized. There is no pulmonic valve stenosis. There is no pulmonic regurgitation. Mitral Valve The mitral valve has normal leaflets. There is no mitral valve stenosis. There is mild mitral valve regurgitation. Tricuspid Valve The tricuspid valve leaflets are normal. There is no significant tricuspid valve stenosis. There is moderate tricuspid valve regurgitation. No pulmonary hypertension, estimated pulmonary arterial systolic pressure is 30 mmHg. Pericardium/Pleural The pericardium appears normal. There is no pericardial effusion. Inferior Vena Cava Normal inferior vena cava with >50% collapse upon inspiration consistent with normal right atrial pressure. Aorta The aortic root size at the sinus of Valsalva is normal. The prox ascending aorta size is normal. Tricuspid Valve Name Value Normal Estimated PAP/RSVP PA Systolic Pressure 30 mmHg <36 Report Signatures
[2022-08-21 17:59] LABS: Glucose Point of Care 124 mg/dl (65-105)
[2022-08-21 20:25] LABS: Glucose Point of Care 160 mg/dl (65-105)
[2022-08-21] MEDS: CARBIDOPA/LEVODOPA 25/100 MG CR TABLET 2 TABLET PO (20:38)
[2022-08-22] VITALS (15 sets, daily range): BP systolic 117–170; BP diastolic 46–74; PULSE 47–67; RESP 12–20; TEMP 35.5–36.6; O2SAT 97–100
[2022-08-22 04:25] LABS: Basophils Percent Auto 0.4 % (0.2-1.2); Eosinophils Absolute Auto 0.1 K/mm3 (0-0.3); Eosinophils Percent Auto 0.9 % (0-4.4); Hematocrit 32.4 % (37.0-47.0); Hemoglobin 10.8 g/dL (12.0-15.0); Immature Granulocyte Absolute 0.04 K/mm3 (0.00-0.031); Immature Granulocyte Percent A 0.4 % (0-0.5); Lymphocytes Absolute Auto 2.94 K/mm3 (0.9-3.2); Lymphocytes Percent Auto 27.6 % (18.3-44.2); Mean Corpuscular HGB Conc 33.3 g/dl (32-36); Mean Corpuscular Hemoglobin 30.6 pg (26-34); Mean Corpuscular Volume 91.8 fl (80-100); Mean Platelet Volume 10.3 fl (7.4-10.4); Monocytes Absolute Auto 0.7 K/mm3 (0.1-0.6); Monocytes Percent Auto 6.9 % (2.6-8.5); Neutrophils Absolute Auto 6.8 K/mm3 (1.3-6.7); Neutrophils Percent Auto 63.8 % (45.5-73.1); Platelet Count Result 213 k/mm3 (150-375); Red Blood Count 3.53 M/mm3 (4.2-5.4); Red Cell Distribution Width 13.3 % (11.5-14.5); White Blood Count 10.7 K/mm3 (4.5-10.0)
[2022-08-22 04:43] LABS: Alanine Aminotransferase 8 U/L (6-35); Albumin Level 3.7 g/dL (3.5-5.1); Alkaline Phosphatase 76 U/L (38-126); Anion Gap 4 mmol/L (8-16); Aspartate Amino Transferase 18 U/L (14-36); Bilirubin,Total 0.8 mg/dL (0.2-1.3); Blood Urea Nitrogen 14 mg/dL (7-17); Calcium 8.7 mg/dL (8.4-10.2); Carbon Dioxide 29 mmol/L (22-30); Chloride 103 mmol/L (98-107); Estimated CRCL calculation 57 ml/min; Estimated Glomerular Filt Rate > 60; Glucose 94 mg/dL (65-110); Magnesium 1.5 mg/dL (1.6-2.3); Potassium 3.3 mmol/L (3.4-5.0); Sodium 136 mmol/L (137-145)
[2022-08-22 08:14] LABS: Glucose Point of Care 111 mg/dl (65-105)
[2022-08-22] MEDS: MAGNESIUM SULF 2 GM/WATER 50ML 2 GM/50 ML BAG IVPB (09:34)
[2022-08-22] MEDS: POTASSIUM CHLORIDE 20 MEQ TABLET 40 MEQ PO (09:34)
[2022-08-22] MEDS: allopurinoL 100 MG TABLET PO ×2 (09:35→16:25)
[2022-08-22] MEDS: CARBIDOPA/LEVODOPA 25/100 MG TABLET 3 TABLET PO ×3 (09:35→16:25)
[2022-08-22] MEDS: IRBESARTAN 150 MG TABLET 300 MG PO (09:36)
[2022-08-22] MEDS: CHLORTHALIDONE 25 MG TABLET PO (09:36)
[2022-08-22] MEDS: MULTIVITAMINS /C LUTEIN (CENTRUM SILVER) TABLET *BKC 1 TAB PO (09:36)
[2022-08-22] MEDS: metFORMIN HCL XR 500 MG TAB.SR.24H PO (09:36)
[2022-08-22] MEDS: CHOLECALCIFEROL 1,000 UNITS TABLET 1000 UNITS PO (09:36)
--- NOTE | 2022-08-22 10:55 | PM.PNCARD ---
Progress Note: A&P Assessment and Plan (1) Syncope: Code(s): R55 - Syncope and collapse Status: Acute Plan Assessment Sinus bradycardia Syncope likely related to orthostatic hypotension vs vasovagal HTN Plan Cont Irbesartan and chlorthalidone D/C Coreg F/U in clinic in 2 weeks Event monitor 30 days in outpatient Subjective Date/time seen: 08/22/22 10:55 Interval history: No acute events HR 45 to 50 bpm Review of Systems Review of Systems: All systems reviewed & are unremarkable except as noted in HPI and below Exam Const: General: comfortable and no acute distress Other: Able to lie flat HENMT: Face/Nose/Sinus: Normal nares present and no epistaxis Mouth: Yes moist mucous membranes Eyes: Sclera: sclerae normal Pupils: Equal, round and reactive pupils present Neck: Neck: supple and no JVD Carotids: no bruits Resp: Auscultation: clear to auscultation bilaterally and lung sounds not diminished Other: No chest wall tenderness Cardio: Rate: regular rate Rhythm: regular rhythm Heart sounds: no gallops, no murmurs and no rubs GI: GI Palp: Yes Soft to palpation and No Tenderness to palpation present (GI) Auscultation: normal bowel sounds Skin: General skin exam: normal color, rashes and/or lesions noted and no erythema Other: Warm Neuro: Cranial nerves: Yes Equal, round and reactive pupils present Speech: normal speech Other: No obvious focal deficit or facial asymmetry Extrem: General: no edema Other: Normal capillary refills Intact distal pulses. Objective Data Vital Signs Vital Signs: Vital Signs - 24 hr 08/21/22 12:00 08/21/22 12:00 08/21/22 12:00 Temperature 36.4 C Pulse Rate 50 L 57 L Respiratory Rate 14 Blood Pressure 129/63 Pulse Oximetry 100 Oxygen Delivery Room Air 08/21/22 16:00 08/21/22 16:00 08/21/22 14:00 Temperature 36.4 C Pulse Rate 52 L 51 L Respiratory Rate 16 Blood Pressure 129/64 Pulse Oximetry 100 Oxygen Delivery Room Air 08/21/22 16:00 08/21/22 18:00 08/21/22 20:00 Temperature Pulse Rate 55 L 65 Respiratory Rate Blood Pressure 128/48 L Pulse Oximetry Oxygen Delivery 08/21/22 20:00 08/21/22 20:38 08/21/22 20:39 Temperature 36.4 C L Pulse Rate 54 L Respiratory Rate 18 Blood Pressure 128/48 L 124/56 L 112/56 L Pulse Oximetry 98 Oxygen Delivery 08/21/22 20:00 08/21/22 20:00 08/21/22 22:00 Temperature Pulse Rate 58 L 55 L Respiratory Rate Blood Pressure Pulse Oximetry Oxygen Delivery Room Air 08/21/22 23:52 08/22/22 00:00 08/22/22 00:00 Temperature 36.5 C Pulse Rate 53 L 47 L Respiratory Rate 16 Blood Pressure 129/65 Pulse Oximetry 96 Oxygen Delivery Room Air 08/22/22 02:00 08/22/22 04:00 08/22/22 04:00 Temperature Pulse Rate 49 L 55 L Respiratory Rate Blood Pressure Pulse Oximetry Oxygen Delivery Room Air 08/22/22 04:00 08/22/22 06:00 08/22/22 08:00 Temperature 36.1 C L 35.6 C L Pulse Rate 48 L 54 L 50 L Respiratory Rate 16 16 Blood Pressure 149/60 H 156/67 H Pulse Oximetry 97 99 Oxygen Delivery 08/22/22 08:00 08/22/22 08:00 08/22/22 10:00 Temperature Pulse Rate 53 L 54 L Respiratory Rate Blood Pressure Pulse Oximetry Oxygen Delivery Room Air Intake/Output Intake/Output: Intake & Output 08/19/22 08/20/22 08/21/22 08/22/22 23:59 23:59 23:59 23:59 Intake Total 120 580 550 Output Total 200 900 900 Balance -80 -320 -350 Meds/Results Medications: Active Medications Generic Name Dose Route Start Last Admin Trade Name Jackson PRN Reason Stop Dose Admin Acetaminophen 650 mg 08/20/22 14:56 Acetaminophen 325 Mg Tablet PO Q6H PRN Mild Pain (1-3) or Fever Allopurinol 100 mg 08/20/22 21:10 08/22/22 09:35 Allopurinol 100 Mg Tablet PO 100 mg BID BARB Administration Carbidopa/Levodopa 3 tablet
[2022-08-22 11:57] LABS: Glucose Point of Care 132 mg/dl (65-105)
--- NOTE | 2022-08-22 15:09 | PM.IMPN ---
Progress Note: A&P Assessment and Plan (1) Syncope: Code(s): R55 - Syncope and collapse Status: Acute Assessment and Plan: History seems consistent with vasovagal syncope Bradycardic however sinus bradycardia with no blocks/pauses Continue telemetry Coreg on hold Echo with normal EF. Moderate TR mild MR PASP normal Carotid Doppler with insignificant stenosis Orthostatic vitals negative (2) Bradycardia: Code(s): R00.1 - Bradycardia, unspecified Status: Acute Assessment and Plan: Hold carvedilol for now to see how she responds. TSH normal. Continue to monitor on telemetry. (3) Type 2 diabetes mellitus: Code(s): E11.9 - Type 2 diabetes mellitus without complications Status: Acute Assessment and Plan: Initiate sliding scale insulin, Accu-Cheks, and hypoglycemic protocol. A1c 6.4 (4) Hypertension: Code(s): I10 - Essential (primary) hypertension Status: Chronic Assessment and Plan: Blood pressures are stable. Continue irbesartan and chlorthalidone; carvedilol on hold given bradycardia. (5) Parkinsons disease: Code(s): G20 - Parkinson's disease Status: Chronic Assessment and Plan: Continue carbidopa-levodopa. (6) Hypokalemia: Code(s): E87.6 - Hypokalemia Status: Acute Assessment and Plan: May be related to thiazide-like diuretic. Replace potassium and monitor. (7) Lower extremity edema: Code(s): R60.0 - Localized edema Status: Acute Assessment and Plan: May very well be dependent edema though venous Doppler ultrasounds negative Subjective Date/time seen: 08/22/22 15:09 Interval history: No new complaints. Telemetry reviewed. Denies any dizziness or lightheadedness. Discussed with over the phone. Echo reviewed Review of Systems Review of Systems: All systems reviewed & are unremarkable except as noted in HPI and below Exam Narrative: General: Well-developed, nontoxic-appearing female in the semi-Tuttle position in bed. HEENT: Normocephalic, atraumatic. PERRL, EOMI. Sclera anicteric. Oral mucosa moist. Oropharynx clear. Neck: Supple. Trachea midline. No carotid bruits. Respiratory: Lungs are clear to auscultation bilaterally. Cardiovascular: Bradycardic, sinus rhythm with S1-S2. Systolic murmur at the upper sternal border. Gastrointestinal: Abdomen is soft, nontender, and nondistended with positive bowel sounds. Skin: Warm and dry. No rash or lesions on limited exam. Extremities: No cyanosis or clubbing. 2+ coby ankle edema bilaterally. Radial and pedal pulses intact. Neurological: Alert. Cranial nerves 2-12 are grossly intact. No gross focal deficits to casual conversation. Psychiatric: Pleasant and cooperative with normal mood and affect. Judgment and insight intact. Objective Data Vital Signs Vital Signs: Vital Signs - 24 hr 08/21/22 16:00 08/21/22 16:00 08/21/22 16:00 Temperature 97.6 F Pulse Rate 52 L 55 L Respiratory Rate 16 Blood Pressure 129/64 Pulse Oximetry 100 Oxygen Delivery Room Air 08/21/22 18:00 08/21/22 20:00 08/21/22 20:00 Temperature 97.5 F L Pulse Rate 65 54 L Respiratory Rate 18 Blood Pressure 128/48 L 128/48 L Pulse Oximetry 98 Oxygen Delivery 08/21/22 20:38 08/21/22 20:39 08/21/22 20:00 Temperature Pulse Rate Respiratory Rate Blood Pressure 124/56 L 112/56 L Pulse Oximetry Oxygen Delivery Room Air 08/21/22 20:00 08/21/22 22:00 08/21/22 23:52 Temperature 97.7 F Pulse Rate 58 L 55 L 53 L Respiratory Rate 16 Blood Pressure 129/65 Pulse Oximetry 96 Oxygen Delivery 08/22/22 00:00 08/22/22 00:00 08/22/22 02:00 Temperature Pulse Rate 47 L 49 L Respiratory Rate Blood Pressure Pulse Oximetry Oxygen Delivery Room Air 08/22/22 04:00 08/22/22 04:00 08/22/22 04:00 Temperature 97.0 F L Pulse Rate 55 L
[2022-08-22 16:49] LABS: Glucose Point of Care 102 mg/dl (65-105)
[2022-08-22 20:37] LABS: Glucose Point of Care 197 mg/dl (65-105)
[2022-08-22] MEDS: CARBIDOPA/LEVODOPA 25/100 MG CR TABLET 2 TABLET PO (22:04)
[2022-08-23] VITALS (9 sets, daily range): BP systolic 144–155; BP diastolic 60–65; PULSE 46–68; RESP 18–21; TEMP 35.7–36.6; O2SAT 97–100
[2022-08-23 04:57] LABS: Basophils Percent Auto 0.4 % (0.2-1.2); Eosinophils Absolute Auto 0.1 K/mm3 (0-0.3); Hematocrit 32.2 % (37.0-47.0); Hemoglobin 10.8 g/dL (12.0-15.0); Immature Granulocyte Absolute 0.04 K/mm3 (0.00-0.031); Immature Granulocyte Percent A 0.4 % (0-0.5); Lymphocytes Absolute Auto 3.27 K/mm3 (0.9-3.2); Lymphocytes Percent Auto 29.2 % (18.3-44.2); Mean Corpuscular HGB Conc 33.5 g/dl (32-36); Mean Corpuscular Hemoglobin 30.5 pg (26-34); Mean Platelet Volume 10.4 fl (7.4-10.4); Monocytes Absolute Auto 0.7 K/mm3 (0.1-0.6); Monocytes Percent Auto 6.6 % (2.6-8.5); Neutrophils Percent Auto 62.4 % (45.5-73.1); Platelet Count Result 219 k/mm3 (150-375); Red Blood Count 3.54 M/mm3 (4.2-5.4); White Blood Count 11.2 K/mm3 (4.5-10.0)
[2022-08-23 05:12] LABS: Alanine Aminotransferase 9 U/L (6-35); Albumin Level 3.7 g/dL (3.5-5.1); Alkaline Phosphatase 76 U/L (38-126); Anion Gap 6 mmol/L (8-16); Aspartate Amino Transferase 20 U/L (14-36); Bilirubin,Total 0.7 mg/dL (0.2-1.3); Blood Urea Nitrogen 12 mg/dL (7-17); Calcium 8.9 mg/dL (8.4-10.2); Carbon Dioxide 28 mmol/L (22-30); Chloride 102 mmol/L (98-107); Estimated CRCL calculation 56 ml/min; Estimated Glomerular Filt Rate > 60; Glucose 93 mg/dL (65-110); Magnesium 1.8 mg/dL (1.6-2.3); Potassium 3.5 mmol/L (3.4-5.0); Sodium 136 mmol/L (137-145)
[2022-08-23 07:57] LABS: Glucose Point of Care 119 mg/dl (65-105)
[2022-08-23] MEDS: IRBESARTAN 150 MG TABLET 300 MG PO (08:53)
[2022-08-23] MEDS: CHOLECALCIFEROL 1,000 UNITS TABLET 1000 UNITS PO (08:53)
[2022-08-23] MEDS: CARBIDOPA/LEVODOPA 25/100 MG TABLET 3 TABLET PO ×2 (08:53→12:38)
[2022-08-23] MEDS: CHLORTHALIDONE 25 MG TABLET PO (08:53)
[2022-08-23] MEDS: allopurinoL 100 MG TABLET PO (08:53)
[2022-08-23] MEDS: metFORMIN HCL XR 500 MG TAB.SR.24H PO (08:54)
[2022-08-23] MEDS: MULTIVITAMINS /C LUTEIN (CENTRUM SILVER) TABLET *BKC 1 TAB PO (08:54)
--- NOTE | 2022-08-23 11:55 | PM.DS ---
DS: Admitting Diagnosis Discharge Date 08/23/2022 Admitting Diagnosis Syncope DS: Discharge Diagnosis Discharge Diagnosis (1) Syncope: Code(s): R55 - Syncope and collapse Status: Acute (2) Bradycardia: Code(s): R00.1 - Bradycardia, unspecified Status: Acute (3) Type 2 diabetes mellitus: Code(s): E11.9 - Type 2 diabetes mellitus without complications Status: Acute (4) Hypertension: Code(s): I10 - Essential (primary) hypertension Status: Chronic (5) Parkinsons disease: Code(s): G20 - Parkinson's disease Status: Chronic (6) Hypokalemia: Code(s): E87.6 - Hypokalemia Status: Acute (7) Lower extremity edema: Code(s): R60.0 - Localized edema Status: Acute DS: Summary Hospital Course Hospital Course: # syncope: To it that History seems consistent with vasovagal syncope Bradycardic however sinus bradycardia with no blocks/pauses Continue telemetry with no significant arrhythmia or pauses Coreg on hold Echo with normal EF.? Moderate TR mild MR PASP normal Carotid Doppler with insignificant stenosis Orthostatic vitals negative # bradycardia: Did Hold carvedilol for now to see how she responds.? TSH normal.? Continue to monitor on telemetry. # type 2 diabetes mellitus: Initiate sliding scale insulin, Accu-Cheks, and hypoglycemic protocol.? A1c 6.4 # hypertension: Blood pressures are stable.? Continue irbesartan and chlorthalidone; carvedilol on hold given bradycardia. # parkinsons disease: Continue carbidopa-levodopa. # hypokalemia: May be related to thiazide-like diuretic. Replace potassium and monitor. # lower extremity edema: May very well be dependent edema though venous Doppler ultrasounds negative Time Spent with Patient Time attestation: Total time spent providing and/or coordinating discharge services: 35 minutes Exam Narrative: General: Well-developed, nontoxic-appearing female in the semi-Tuttle position in bed. HEENT: Normocephalic, atraumatic. PERRL, EOMI. Sclera anicteric. Oral mucosa moist. Oropharynx clear. Neck: Supple. Trachea midline. No carotid bruits. Respiratory: Lungs are clear to auscultation bilaterally. Cardiovascular: Bradycardic, sinus rhythm with S1-S2. Systolic murmur at the upper sternal border. Gastrointestinal: Abdomen is soft, nontender, and nondistended with positive bowel sounds. Skin: Warm and dry. No rash or lesions on limited exam. Extremities: No cyanosis or clubbing. 2+ coby ankle edema bilaterally. Radial and pedal pulses intact. Neurological: Alert. Cranial nerves 2-12 are grossly intact. No gross focal deficits to casual conversation. Psychiatric: Pleasant and cooperative with normal mood and affect. Judgment and insight intact. DS: Data Data Completed and Pending Completed studies during hospitalization: Exam Type: ? ? CA echo doppler color flow Study Info Indications ? ? R55 - Syncope and collapse Complete two-dimensional, color flow and Doppler transthoracic echocardiogram is performed. Account #: ? ? [id number] Summary ? 1. Complete two-dimensional, color flow and Doppler transthoracic echocardiogram is performed. ? 2. Left ventricular systolic function is normal, estimated at 65-70%. ? 3. There is mild mitral valve regurgitation. ? 4. There is moderate tricuspid valve regurgitation. ? 5. No pulmonary hypertension, estimated pulmonary arterial systolic pressure is 30 mmHg. Left Ventricle ? Left ventricular chamber dimension is normal. ? Left ventricular systolic function is normal, estimated at 65-70%. ? There is no increased left ventricular wall thickness. ? Left ventricular septal wall motion is normal. ? The left ventricular diastolic function is normal. Right Ventricle ? Right ventricular chamber dimension is normal. ? Right ventricular systolic function is normal. Left Atria ? Left atrial chamber dimension is normal. Right Atri
[2022-08-23 12:01] LABS: Glucose Point of Care 127 mg/dl (65-105)
== END 2022-08-23 13:05 | disposition home or self-care (01) ==
LOC: ANHED 09:53 → ANHIMU 13:32
PROVIDERS: Physician Assistant; Admitting Provider Internal Medicine; Emergency Provider Emergency Medicine; PCP Specialist; Visit Provider Internal Medicine
DX: R55 Syncope and collapse (principal); R00.1 Bradycardia, unspecified; E11.65 Type 2 diabetes mellitus with hyperglycemia; I10 Essential (primary) hypertension; G20 Parkinson's disease; E87.6 Hypokalemia; R60.0 Localized edema; R94.31 Abnormal electrocardiogram [ECG] [EKG]; R61 Generalized hyperhidrosis; I08.1 Rheumatic disorders of both mitral and tricuspid valves; R11.2 Nausea with vomiting, unspecified; M19.90 Unspecified osteoarthritis, unspecified site; M10.9 Gout, unspecified; D64.9 Anemia, unspecified; R79.89 Other specified abnormal findings of blood chemistry; Z90.49 Acquired absence of other specified parts of digestive tract; Z79.84 Long term (current) use of oral hypoglycemic drugs; Z79.52 Long term (current) use of systemic steroids; Z79.899 Other long term (current) drug therapy
CPT/HCPCS: 36415; 71045; 80048; 80053; 81003; 82607; 82728; 82746; 82948; 83036; 83540; 83550; 83735; 83880; 84443; 84484; 85025; 85610; 85730; 93005; 93306; 93880; 93970; 96374; 99285; A9270; G0378; J3475